=== PATIENT | male | born 2005 | race Two or more races ===

== ENCOUNTER → 2025-02-26 | Outpatient (CLI) | payer MEDICAID, SELFPAY ==
--- NOTE | 2025-02-26 09:27 | XR_ITS ---
Examination: Hand, right 3 views Technique: Hand AP, oblique, lateral 3 views Date and time of exam: February 26, 2025, 10:13 a.m. INDICATIONS: Right hand pain 3 months FINDINGS: Adequate bone density. No fracture or dislocation No erosive or other arthritic change IMPRESSION: No erosive or other arthritic change
--- NOTE | 2025-02-26 09:27 | XR_ITS ---
Examination: Wrist, right 3 views Technique: Wrist AP, oblique, lateral 3 views Date and time of exam: February 26, 2025, 1013 hours INDICATIONS: Right wrist pain beginning 2 months ago FINDINGS: No fracture or dislocation No erosive or other arthritic change IMPRESSION: No fracture No erosive or other arthritic change
== END | disposition home or self-care (01) ==
PROVIDERS: PCP Physician Assistant
DX: M25.531 Pain in right wrist (principal); M79.641 Pain in right hand
CPT/HCPCS: 73110; 73130